=== PATIENT | female | born 1980 | race Hispanic/Latino ===

== ENCOUNTER → 2020-03-11 | Day surgery (SDC) | payer OTHER ==
[~2020-03-11] MED LIST: CALCIUM PO; LIDOCAINE HCL 2% LOCAL INJ 5 ML SDV VIAL INJ ONE; LINZESS290 MCG PO; MIDAZOLAM HCL 2 MG/2 ML VIAL ONE; PANTOPRAZOLE 40 MG 10ML VIAL ONE; PANTOPRAZOLE SO40 MG PO; PROPOFOL IV EMULSION 10 MG/ML 20 ML VIAL ONE; SODIUM CHLORIDE 0.9% 50ML 50 ML ONE; Tylenol PO; VIT D PO
[2020-03-11 16:00] VITALS: BP 115/73
== END | disposition home or self-care (01) ==
LOC: OR 10:03
PROVIDERS: ATTEND Internal Medicine Gastroenterology
DX: K21.9 Gastro-esophageal reflux disease without esophagitis (principal); K29.50 Unspecified chronic gastritis without bleeding; K20.90 Esophagitis, unspecified without bleeding; B96.81 Helicobacter pylori [H. pylori] as the cause of diseases classified elsewhere; K58.1 Irritable bowel syndrome with constipation; E78.5 Hyperlipidemia, unspecified; I10 Essential (primary) hypertension; H91.90 Unspecified hearing loss, unspecified ear; F32.9 Major depressive disorder, single episode, unspecified; Z01.812 Encounter for preprocedural laboratory examination; Z11.59 Encounter for screening for other viral diseases; Z87.01 Personal history of pneumonia (recurrent)
CPT/HCPCS: 76700; 43239; C9113; J2001; J2250; J2704; U0002